=== PATIENT | female | born 1965 | race Hispanic/Latino ===

== ENCOUNTER 2018-10-15 09:21 | Outpatient (CLI) | payer BC ==
[2018-10-15] MEDS ORDERED: XYLOCAINE TOPICAL 4% TP ONE (09:32)
[2018-10-15] MEDS ORDERED: SILVER NITRATE TP ONE (10:00)
== END 2018-10-15 09:22 | disposition home or self-care (01) ==
LOC: WOUND 09:21
PROVIDERS: ATTEND Surgery
DX: T21.33XA Burn of third degree of upper back, initial encounter (principal); X30.XXXA Exposure to excessive natural heat, initial encounter; Y93.89 Activity, other specified; Y92.89 Other specified places as the place of occurrence of the external cause; Y99.8 Other external cause status
CPT/HCPCS: 11042; G0463; 99214

== ENCOUNTER 2018-10-22 10:54 | Outpatient (CLI) | payer BC ==
[2018-10-22] MEDS ORDERED: XYLOCAINE TOPICAL 4% TP ONE (11:50)
== END 2018-10-22 10:55 | disposition home or self-care (01) ==
LOC: WOUND 10:54
PROVIDERS: ATTEND Surgery
DX: T21.33XD Burn of third degree of upper back, subsequent encounter (principal); X30.XXXD Exposure to excessive natural heat, subsequent encounter

== ENCOUNTER 2018-10-29 07:51 | Outpatient (CLI) | payer BC ==
[2018-10-29] MEDS ORDERED: XYLOCAINE TOPICAL 4% TP NR (08:02)
== END 2018-10-29 07:52 | disposition home or self-care (01) ==
LOC: WOUND 07:51
PROVIDERS: ATTEND Surgery
DX: T21.33XD Burn of third degree of upper back, subsequent encounter (principal); T31.0 Burns involving less than 10% of body surface; Z90.49 Acquired absence of other specified parts of digestive tract; X08.8XXD Exposure to other specified smoke, fire and flames, subsequent encounter
CPT/HCPCS: 16020

== ENCOUNTER 2018-11-05 08:05 | Outpatient (CLI) | payer BC ==
[2018-11-05] MEDS ORDERED: XYLOCAINE TOPICAL 4% TP ONE (08:30)
== END 2018-11-05 08:06 | disposition home or self-care (01) ==
LOC: WOUND 08:05
PROVIDERS: ATTEND Surgery
DX: T21.33XD Burn of third degree of upper back, subsequent encounter (principal); T31.0 Burns involving less than 10% of body surface; Z90.49 Acquired absence of other specified parts of digestive tract; X08.8XXD Exposure to other specified smoke, fire and flames, subsequent encounter
CPT/HCPCS: 16020

== ENCOUNTER 2018-11-11 08:14 | Outpatient (CLI) | payer BC ==
[2018-11-11] MEDS ORDERED: XYLOCAINE TOPICAL 4% TP NR (08:51)
== END 2018-11-11 08:15 | disposition home or self-care (01) ==
LOC: WOUND 08:14
PROVIDERS: ATTEND Surgery
DX: T21.33XD Burn of third degree of upper back, subsequent encounter (principal); T31.0 Burns involving less than 10% of body surface; Z90.49 Acquired absence of other specified parts of digestive tract; X08.8XXD Exposure to other specified smoke, fire and flames, subsequent encounter
CPT/HCPCS: 99213; G0463